=== PATIENT | female | born 1970 | race Caucasian/White ===

== ENCOUNTER → 2018-07-13 | Outpatient (CLI) | payer BC ==
[~2018-07-13] MED LIST: ONDA4TAB11 PO; OXYC1TAB87 PO; TRAM50TA2 PO
--- NOTE | 2018-07-13 15:52 | Diagnostic Imaging Report ---
PROCEDURE: US Non-ob pelvis comp/trans. TECHNIQUE: Multiple realtime grayscale images were obtained of the pelvis in various projections endovaginally. Transabdominal imaging was also performed. INDICATION: Abnormal uterine bleeding. Uterus measures 7.1 x 4.7 x 3.7 cm. Endometrium is thin approximately 1-2 mm. No myometrial mass is detected. There is a small cervical nabothian cyst measuring approximately 5 mm in size. Right ovary was not visualized due to bowel gas. Left ovary measures 1.8 x 1.0 x 1.2 cm. Left ovary does contain blood flow. No adnexal mass or free fluid is seen. IMPRESSION: Nonvisualized right ovary. The study is otherwise unremarkable. Dictated by: Dictated on workstation # [id number]
== END ==
LOC: RAD 14:03
PROVIDERS: ATTEND Family Medicine
DX: N93.9 Abnormal uterine and vaginal bleeding, unspecified (principal)
CPT/HCPCS: 76830; 76856

== ENCOUNTER → 2019-01-03 | Outpatient (CLI) | payer BC ==
--- NOTE | 2019-01-04 17:02 | Diagnostic Imaging Report ---
INDICATION: Routine screening. No prior mammograms are available for comparison. This is a baseline study. 2-D and 3-D bilateral screening mammography was performed. The current study was also evaluated with a Computer Aided Detection (CAD) system. 3-D tomosynthesis was also performed and reviewed. FINDINGS: Scattered fibroglandular densities are identified bilaterally. No mass or malignant-appearing microcalcifications are seen. The axillae are unremarkable. IMPRESSION: No mammographic features suspicious for malignancy are identified. ACR BI-RADS Category 1: Negative. Result letter will be mailed to the patient. Note: At least 10% of breast cancer is not imaged by mammography. Dictated by: Dictated on workstation # [id number]
== END ==
LOC: RAD 14:57
PROVIDERS: ATTEND Family Medicine
DX: Z12.31 Encounter for screening mammogram for malignant neoplasm of breast (principal)
CPT/HCPCS: 77067